=== PATIENT | female | born 2000 | race Caucasian/White ===

== ENCOUNTER 2021-07-22 09:28 | Emergency (ER) | payer OTHER ==
[2021-07-22 09:54] LABS: BILIRUBIN,URINE NEGATIVE (NEGATIVE); GLUCOSE, URINE (UA) NEGATIVE (NEGATIVE); KETONES,URINE (UA) NEGATIVE (NEGATIVE); LEUKOCYTE ESTERASE, URINE NEGATIVE (NEGATIVE); NITRITE,URINE NEGATIVE (NEGATIVE); OCCULT BLOOD,URINE LARGE (NEGATIVE); PH,URINE 5.5 PH (5.0-7.5); PROTEIN,URINE 30 mg/dL (NEGATIVE); UROBILINOGEN,URINE 0.2 (NORMAL) E.U./dL (NORMAL)
[2021-07-22 09:55] LABS: BASOPHILS % (AUTO) 0.4 %; EOSINOPHILS # (AUTO) 0.1 10^3/uL (0.0-0.7); EOSINOPHILS % (AUTO) 1.3 %; HCT - HEMATOCRIT 36.3 % (37.0-47.0); HGB - HEMOGLOBIN 12.3 g/dL (12.0-16.0); LYMPHOCYTES % (AUTO) 9.6 %; MEAN CORPUSCULAR HEMOGLOBIN 28.7 pg (27.0-31.0); MEAN CORPUSCULAR HGB CONC 33.9 g/dL (32.0-36.0); MEAN CORPUSCULAR VOLUME 84.6 fL (81.0-99.0); MEAN PLATELET VOLUME 9.5 fL (7.9-10.8); MONOCYTES # (AUTO) 0.5 10^3/uL (0.0-1.0); MONOCYTES % (AUTO) 4.8 %; NEUTROPHILS # (AUTO) 8.7 10^3/uL (1.5-6.6); NEUTROPHILS % (AUTO) 83.4 %; PLT - PLATELET COUNT 198 10^3/uL (130-450); RED BLOOD COUNT 4.29 10^6/uL (4.20-5.40); RED CELL DISTRIBUTION WIDTH 13.4 % (12.0-15.0); WHITE BLOOD COUNT 10.4 x10^3/uL (4.8-10.8)
[2021-07-22 09:57] LABS: CLARITY,URINE HAZY (CLEAR); HCG UR QUAL POSITIVE
[2021-07-22 10:09] LABS: BACTERIA,URINE Few /HPF (None Seen); RBC,URINE TNTC /HPF (0-5); SQUAMOUS EPITHELIAL CELL,UR MOD Squamous (<= Few); WBC,URINE >25 /HPF (0-5)
[2021-07-22 10:11] LABS: ALBUMIN 3.8 g/dL (3.2-5.5); ALBUMIN/GLOBULIN RATIO 1.1 (1.0-2.2); BILIRUBIN,TOTAL 0.7 mg/dL (0.2-1.0); CALCIUM 8.9 mg/dL (8.5-10.3); CREATININE 0.6 mg/dL (0.4-1.0); POTASSIUM 3.6 mmol/L (3.5-5.0); TOTAL PROTEIN 7.2 g/dL (6.7-8.2)
--- NOTE | 2021-07-22 10:23 | Ultrasound Report ---
PROCEDURE: OB First Trimester INDICATIONS: 11 wks preg, vag bleed OUTSIDE/PRIOR DATING DATA: Last menstrual period (LMP): 05/04/2021. LMP-based estimated date of delivery (ROMY): 02/08/2022. First dating scan (date and location): 07/02/2021. Estimated date of delivery (ROMY) from first dating scan: 02/08/2022. The below data below was generated using the ultrasound generated ROMY of 02/08/2022 TECHNIQUE: Real-time scanning was performed of the fetus and maternal pelvic organs, with image documentation. COMPARISON: None. FINDINGS: Embryo: Mean gestational sac 5.5 cm containing a fetus measuring 4.5 cm in crown-rump length. Heart rate: 171 bpm Measurement variability in dating: +/- 4 weeks by LMP, +/- 7 days by mean sac diameter (use before 6 weeks gestation if crown-rump length not able to be measured), +/- 5 days by crown-rump length (6-12 weeks gestation). Maternal organs: Ovaries unremarkable other than right corpus luteum cyst. IMPRESSION: Single live intrauterine gestation with estimated ultrasound age of 11 weeks 2 days Reviewed by: Sae Swartz MD on 07/22/2021 10:22 AM PDT Approved by: Sae Swartz MD on 07/22/2021 10:22 AM PDT Station ID: [id number]
--- NOTE | 2021-07-22 11:52 | ED Physician Documentation ---
PD HPI FEMALE - Stated complaint Stated Complaint: SPOTTING - Chief complaint Chief Complaint: Abd Pain - History obtained from History obtained from: Patient - Additional information Additional information: Patient comes to the emergency department for chief complaint of an episode of vaginal bleeding yesterday. She states that she urinated and noticed that for a short period, there was blood with the urine. However, the urine cleared and patient has not had any more bleeding since. No bleeding onto her underwear or blood with wiping. No brown discharge. Patient denies any dysuria or сергей quency. No abdominal pain or cramping. She has had some mild nausea throughout her first trimester. She is approximately 11 weeks . The patient states she just moved here with the [employer] and has not established care with OB yet, but is planning to. This is her first . No other complaints at this time. Review of Systems Ten Systems: 10 systems reviewed and negative Constitutional: reports: Reviewed and negative Eyes: reports: Reviewed and negative Ears: reports: Reviewed and negative Nose: reports: Reviewed and negative Throat: reports: Reviewed and negative Cardiac: reports: Reviewed and negative Respiratory: reports: Reviewed and negative GI: reports: Reviewed and negative : reports: Vaginal bleeding, Now EGA Skin: reports: Reviewed and negative Musculoskeletal: reports: Reviewed and negative Neurologic: reports: Reviewed and negative Psychiatric: reports: Reviewed and negative Endocrine: reports: Reviewed and negative Immunocompromised: reports: Reviewed and negative PD PAST MEDICAL HISTORY - Past Medical History Past Medical History: No - Past Surgical History Past Surgical History: No - Present Medications Home Medications: Ambulatory Orders Medication Instructions Recorded Confirmed Pnv No.95/Ferrous Fum/Folic AC 1 tab PO DAILY 07/22/21 07/22/21 [ [place]] - Allergies Allergies/Adverse Reactions: Allergies Allergy/AdvReac Type Severity Reaction Status Date / Time No Known Drug Allergies Allergy Verified 07/22/21 09:34 - Social History Does the pt smoke?: No Smoking Status: Never smoker Does the pt drink ETOH?: No PD ED PE NORMAL - Vitals Vital signs reviewed: Yes - General General: Alert and oriented X 3, No acute distress, Well developed/nourished - HEENT HEENT: Atraumatic, PERRL, EOMI, Moist mucous membranes - Neck Neck: Supple, no meningeal sign - Cardiac Cardiac: RRR, No murmur - Respiratory Respiratory: No respiratory distress, Clear bilaterally - Abdomen Abdomen: Soft, Non tender, Non distended - Female Female : Deferred - Derm Derm: Warm and dry - Extremities Extremities: No deformity - Neuro Neuro: Alert and oriented X 3 - Psych Psych: Normal mood, Normal affect Results - Vitals Vitals: Vital Signs - 24 hr 07/22/21 09:30 Temperature 37.0 C Heart Rate 90 Respiratory 18 Rate Blood Pressure 115/68 O2 Saturation 98 Oxygen O2 Source Room air - Labs Labs: Laboratory Tests 07/22/21 07/22/21 07/22/21 09:39 09:50 09:50 WBC 10.4 RBC 4.29 Hgb 12.3 Hct 36.3 L MCV 84.6 MCH 28.7 MCHC 33.9 RDW 13.4 Plt Count 198 MPV 9.5 Neut # (Auto) 8.7 H Lymph # (Auto) 1.0 L [place] # (Auto) 0.5 Eos # (Auto) 0.1 Baso # (Auto) 0.0 Absolute Nucleated RBC 0.00 Nucleated RBC % 0.0 Sodium 134 L Potassium 3.6 Chloride 101 Carbon Dioxide 23 Anion Gap 10.0 BUN 7 Creatinine 0.6 Estimated GFR (MDRD) 126 Glucose 140 H Calcium 8.9 Total Bilirubin 0.7 AST 20 ALT 13 Alkaline Phosphatase 44 Total Protein 7.2 Albumin 3.8 Globulin 3.4 Albumin/Globulin Ratio 1.1 Lipase 26 Urine Color YELLOW Urine Clarity HAZY Urine pH 5.5 Ur Specific [place] >=1.030 H Urine Protein 30 H Urine Glucose (UA) NEGATIVE Urine Ketones NEGATIVE Urine Occult Blood LARGE H Urine Nitrite NEGATIVE Urine Bilirubin NEGATIVE Urine Urobilinogen 0.2 (NORMAL) Ur Leukocyte Esterase NEGATIVE Urine RBC TNTC H Urine WBC >25 H Ur Squamous Epith Cells MOD Squamous H Urine Bacteria Few Ur Microscopic Review INDICATED Urine Culture Comments NOT INDICATED Urine HCG, Qual POSITIVE - Rads (name of study) OB ultrasound Radiology: Final report received, EMP read indepedently, See rad report (Viable IUP 11 weeks 2 days) PD MEDICAL DECISION MAKING - ED course Complexity details: reviewed results, re-evaluated patient, considered differential, d/w patient ED course: The patient was worked up with ultrasound, which showed a viable intrauterine at 11 weeks and 2 days measurement, with good heart rate. Urinalysis showed blood and a sample contaminated with squamous cells. test positive. Blood work was unremarkable. I discussed with the patient the importance of follow-up with OB. She is not currently experiencing any vaginal bleeding. We discussed the usual indications for return. Departure - Departure Disposition: 01 Home, Self Care Clinical Impression: Threatened miscarriage in early Condition: Stable Instructions: ED Miscarriage Poss Comments: Your ultrasound looks great. Your baby is in the uterus and is measuring at 11 weeks and 2 days. Heartbeat looks good. There is no evidence of a problem with your at this point in time. As we have discussed, anytime you bleed in early , the diagnosis is a "threatened miscarriage" if there is not another obvious cause of the bleeding. It is important that you follow-up with OB as soon as possible to establish care. Please continue vitamins. You should drink 8 to 10 cups of water every day to stay hydrated. If you develop severe pain or bleeding, it is most likely evidence that you are miscarrying. You may return to the emergency department for further concerns; otherwise please follow-up with OB.
[2021-07-22 11:56] VITALS: BP 107/58
== END 2021-07-22 11:58 | disposition home or self-care (01) ==
LOC: ED 09:28
DX: O20.0 Threatened abortion (principal); Z3A.11 11 weeks gestation of pregnancy
CPT/HCPCS: 36415; 80053; 81001; 81003; 81025; 83690; 85025; 87086; 99282; 99284